=== PATIENT | female | born 1970 | race Caucasian/White ===

== ENCOUNTER 2016-12-01 10:17 | Day surgery (SDC) | payer OTHER ==
[2016-11-30 13:39] VITALS: BMI 25.8
--- NOTE | 2016-11-30 14:58 | PREOPHP ---
DATE OF ADMISSION: 12/01/2016 REASON FOR ADMISSION: She is to be admitted tomorrow, 12/01/2016 for hysteroscopy, possible polypec galina, possible myomectomy and possible D and C. CHIEF COMPLAINT: Excessive vaginal bleeding. HISTORY OF PRESENT ILLNESS: This is a 46-year-old female, 1, para 1, who has been bleeding excessively for several months. A pelvic ultrasound done on 09/27/2016 showed a suspicious nodule i n the anterior lower uterine segment that could be an intramural fibroid or a polyp. She is brought in for hysteroscopy and possible removal of either polyp or fibroid and a possible D and C if neces dm. The endometrial stripe was slightly thickened at 10 mm. The alternatives and benefits of thi s method, the risks, and possible complications were discussed at great length in the office. All q uestions were answered and a surgical consent was obtained. PAST MEDICAL HISTORY: The patient denies any medical problems. Denies cardiovascular disease. Den ies diabetes, renal disease, liver disease, thyroid disease, or neurological problems. ALLERGIES: NO KNOWN ALLERGIES. FAMILY HISTORY: Noncontributory. REVIEW OF SYSTEMS: A 12-point review of systems is noncontributory. PHYSICAL EXAMINATION: GENERAL: Well-developed and nourished, in no distress, alert and oriented x3 with a height of 5 fee t 1 inch and a weight of 138 pounds. VITAL SIGNS: Showed temperature to be 98, blood pressure 133/73, respirations 16 per minute, the pu lse is 72/minute and regular. HEENT: Within normal limits. Pupils are PERRLA. NECK: Supple. Thyroid not palpable. There is no lymphadenopathy. BREASTS: Show no masses or lumps. LUNGS: Clear to percussion and auscultation. HEART: Normal sinus rhythm without a murmur. ABDOMEN: Soft. There is no organomegaly or hernias. PELVIC: Normal external genitalia. Vagina is normal. Cervix is normal without lesions. Bimanual exam: The uterus is slightly enlarged in the midline, firm, mobile. There are no adnexal masses pr esent. EXTREMITIES: Within normal limits. NEUROLOGIC: Also normal. IMPRESSION: Excessive vaginal bleeding, possible submucosal with small fibroids, intracavitary. Po ssible polyp. PLAN: The patient is to be admitted for hysteroscopy under general anesthesia, possible polypectom y, possible myomectomy. Dictated By: MICHELLE ELDER/JOSH Conf#: [id number] DID#: [id number]
[~2016-12-01] VITALS: Ht 154.9 cm; Wt 60.8 kg
[2016-12-01] VITALS (9 sets, daily range): BP systolic 142–150; BP diastolic 71–76; PULSE 80–92; RESP 14–19; Ht 154.9 cm; Wt 60.8 kg
[~2016-12-01 10:17] MED LIST: EPHEDrine SULFATE 50 MG/5 ML SYG ONE
[2016-12-01] MEDS ORDERED: LACTATED RINGER'S 1,000 ML IV* SCH (10:30)
[2016-12-01] MEDS ORDERED: MIDAZOLAM 1 MG/ML 2 ML INJ ONE (12:35)
[2016-12-01] MEDS ORDERED: FENTAnyl 50 MCG/ML VIAL ONE (12:35)
[2016-12-01] MEDS ORDERED: PROPOFOL 20 ML ONE (12:35)
[2016-12-01] MEDS ORDERED: LIDOCAINE 1% (MDV) 20 ML INJ ONE (12:42)
[2016-12-01] MEDS ORDERED: ONDANSETRON 4 MG INJ ONE (12:47)
[2016-12-01] MEDS ORDERED: DEXAMETHASONE 4 MG/ML 1 ML INJ ONE (12:47)
[2016-12-01] MEDS ORDERED: FAMOTIDINE 20 MG INJ ONE (12:47)
[2016-12-01] MEDS ORDERED: CEFAZOLIN 1 GM INJ ONE (13:11)
[2016-12-01] MEDS ORDERED: LACTATED RINGER'S 1,000 ML IV SCH (13:53)
--- NOTE | 2016-12-01 13:57 | PD.PPDC ---
ORTHOTIC ASSISTANT Discharge Instruction Diagnosis Final Diagnosis: fibroid. Excessive vaginal bleeding. Condition Patient Condition: Good Diet Diet: Resume Regular Diet Activity/Restrictions Activity: Normal Activity May Shower Restrictions: Nothing in the Vagina No [place] Follow-up Follow-up with Physician: 2, Week/Weeks Return to clinic for [employer] Instructions: Fever greater than 101 Worsening abdominal pain Excessive Vaginal Bleeding Unable to tolerate diet MICHELLE SCHAEFFER MD Dec 01, 2016 13:57
[2016-12-01] MEDS ORDERED: ONDANSETRON 4 MG INJ IV PRN (14:00)
[2016-12-01] MEDS ORDERED: morphine 2 MG INJ IV PRN (14:00)
[2016-12-01] MEDS ORDERED: IBUPROFEN 600 MG TAB PO PRN (14:00)
[2016-12-01] MEDS ORDERED: ACETAMINOPHEN 325 MG TAB PO PRN (14:00)
[2016-12-01] MEDS ORDERED: OXYCODONE/ACETAMINOPHEN (5/325) TAB PO PRN ×2 (14:00)
--- NOTE | 2016-12-01 14:28 | OPR ---
DATE OF OPERATION: 12/01/2016 PREOPERATIVE DIAGNOSES: 1. Excessive vaginal bleeding. 2. Intrauterine polyp. 3. Intrauterine fibroid. POSTOPERATIVE DIAGNOSES: Intracavitary submucosal fibroid. OPERATION PERFORMED: Hysteroscopic resection with Symphion Tissue Removal System. ANESTHESIA: General. ANESTHESIOLOGIST: ____. SURGEON: Michelle Samuel MD. COMPLICATIONS: None. SPECIMENS: Fibroids sent in pieces to pathology. ESTIMATED BLOOD LOSS: Negligible. PROCEDURE AND FINDINGS: With the patient under general anesthesia, she was laid on the table in the dorsal lithotomy position. Her lower abdomen, upper thighs, perineum and vagina were prepped with Betadine and after 3 minutes, she was dressed in the usual sterile fashion for this procedure. A we ighted posterior retractor was applied and anterior lip of the cervix grasped with a single tooth te naculum. The cervix was dilated up to #7 Paige dilators. Then, the hysteroscope was introduced. S yon was used with the Symphion System. A lower segment anterior fibroid was found about 2 cm in di ameter. The rest of the cavity looked normal. Then, the resection was started with the Symphion Sy stem. The fibroid was resected. There was no active bleeding. The amount of saline that was used was controlled, although, there was some leakage of saline back to the vagina. There were no compli cations. Pictures were taken for documentation. The patient withstood the procedure well and was t aken to recovery room with all vital signs stable. Needle, sponge and instrument count at the end o f the procedure was correct twice. Dictated By: MICHELLE ELDER/JOSH Conf#: [id number] DID#: [id number]
== END 2016-12-01 15:28 | disposition home or self-care (01) ==
LOC: SDS 10:17
PROVIDERS: ATTEND Specialist
DX: D25.0 Submucous leiomyoma of uterus (principal); N93.9 Abnormal uterine and vaginal bleeding, unspecified
CPT/HCPCS: 58558; 84703; 88304; J0690; J1100; J2250; J2405; J3010; Z7512; Z7610